=== PATIENT | female | born 2000 | race Two or more races ===

== ENCOUNTER 2019-02-19 21:00 | Emergency (ER) | payer SELFPAY ==
[~2019-02-19] VITALS: Ht 165.1 cm; Wt 83.9 kg
[2019-02-19 21:57] LABS: Basophils # (auto) 0.1 uL; Basophils % (auto) 0.7 % (0.0-2.0); Eosinophils # (auto) 0.2 uL; Eosinophils % (auto) 1.6 % (0.0-7.0); Hemoglobin 15.2 g/dL (12.2-16.2); Lymphocytes # (auto) 5.8 uL; Lymphocytes % (auto) 41.7 % (10.0-50.0); Mean Corpuscular Hemoglobin 27.2 pg (28.0-32.0); Mean Corpuscular Hgb Conc. 33.7 g/dL (32.0-36.0); Mean Corpuscular Volume 80.8 fL (80.0-100.0); Monocytes # (auto) 0.9 uL; Monocytes % (auto) 6.8 % (0.0-12.0); Neutrophils # (auto) 6.8 uL; Neutrophils % (auto) 49.2 % (37.0-80.0); Nucleated Red Blood Cells % 0.1 %; Platelet Count (auto) 370 10^3/uL (140-450); Red Blood Cells 5.57 10^6/uL (4.0-5.20); Red Cell Distribution Width 13.8 % (11.8-14.3); White Blood Cell 13.9 10^3/uL (4.4-10.8)
[2019-02-19 22:09] LABS: Urine Bacteria NONE SEEN /hpf (None Seen); Urine Blood Negative /uL (Negative); Urine Specific Gravity 1.021 (1.001-1.035); Urine WBC <1 /hpf (0 - 5)
[2019-02-19 22:19] LABS: Albumin 4.1 g/dL (3.4-5.0); Calcium 9.3 mg/dL (8.5-10.1); Potassium 4.2 mmol/L (3.5-5.1)
[2019-02-19 22:24] LABS: Bilirubin, Total 0.2 mg/dL (0.2-1.0); Total Protein 8.4 g/dL (6.4-8.2)
[2019-02-20 01:37] VITALS: BP 118/71
== END 2019-02-20 02:45 | disposition home or self-care (01) ==
LOC: ER 21:03
DX: J32.9 Chronic sinusitis, unspecified (principal); R20.0 Anesthesia of skin
CPT/HCPCS: 36415; 70450; 80053; 81001; 81025; 82962; 85025

== ENCOUNTER 2019-02-23 15:41 | Emergency (ER) | payer SELFPAY ==
[~2019-02-23] VITALS: Ht 165.1 cm; Wt 81.6 kg
[2019-02-23 15:59] VITALS: BP 143/81
[2019-02-23 17:35] LABS: Basophils # (auto) 0.1 uL; Basophils % (auto) 0.7 % (0.0-2.0); Eosinophils # (auto) 0.2 uL; Eosinophils % (auto) 1.6 % (0.0-7.0); Hematocrit 46.8 % (36.0-46.0); Hemoglobin 15.6 g/dL (12.2-16.2); Lymphocytes # (auto) 4.6 uL; Lymphocytes % (auto) 39.1 % (10.0-50.0); Mean Corpuscular Hgb Conc. 33.3 g/dL (32.0-36.0); Mean Corpuscular Volume 81.2 fL (80.0-100.0); Monocytes # (auto) 0.8 uL; Monocytes % (auto) 6.7 % (0.0-12.0); Neutrophils % (auto) 51.9 % (37.0-80.0); Nucleated Red Blood Cells % 0.3 %; Platelet Count (auto) 361 10^3/uL (140-450); Red Blood Cells 5.76 10^6/uL (4.0-5.20); White Blood Cell 11.7 10^3/uL (4.4-10.8)
[2019-02-23 18:01] LABS: Albumin 4.1 g/dL (3.4-5.0); Calcium 9.3 mg/dL (8.5-10.1); Potassium 3.7 mmol/L (3.5-5.1)
[2019-02-23 18:06] LABS: Bilirubin, Total 0.4 mg/dL (0.2-1.0); Total Protein 8.2 g/dL (6.4-8.2)
[2019-02-23 18:21] LABS: Urine Bacteria NONE SEEN /hpf (None Seen); Urine Blood Negative /uL (Negative); Urine Specific Gravity 1.013 (1.001-1.035); Urine WBC <1 /hpf (0 - 5)
== END 2019-02-24 01:31 | disposition home or self-care (01) ==
LOC: ER 15:56
DX: R42 Dizziness and giddiness (principal)
CPT/HCPCS: 36415; 80053; 81001; 81025; 85025; 93005; 99284; J7030